=== PATIENT | female | born 1965 | race African-American/Black ===

== ENCOUNTER 2018-06-09 17:24 | Emergency (ER) | payer MEDICAID ==
[~2018-06-09] VITALS: Ht 165.1 cm; Wt 114.0 kg
[2018-06-09] MEDS ORDERED: IBUPROFEN 600MG TABLET PO STA (20:04)
[2018-06-09] MEDS ORDERED: TETANUS, DIPHTHERIA, PERTUSSIS VAC/PF 0.5ML (>7YR OLD) IM ONE (20:15)
[2018-06-09] MEDS ORDERED: BACITRACIN ZINC OINT UDPKT TOP NR (21:45)
[2018-06-09 22:00] VITALS: BP 135/84
== END 2018-06-09 22:00 | disposition home or self-care (01) ==
LOC: ER 17:24
DX: S02.2XXA Fracture of nasal bones, initial encounter for closed fracture (principal); S61.250A Open bite of right index finger without damage to nail, initial encounter; S00.83XA Contusion of other part of head, initial encounter; Y04.1XXA Assault by human bite, initial encounter; Y93.89 Activity, other specified; Y92.89 Other specified places as the place of occurrence of the external cause; Z23 Encounter for immunization
CPT/HCPCS: 70160; 73140; 81025; 90471; 90715; 99284